=== PATIENT | female | born 1980 | race Caucasian/White ===

== ENCOUNTER 2017-07-20 18:45 | Emergency (ER) | payer OTHER ==
[~2017-07-20] VITALS: Ht 165.1 cm; Wt 96.3 kg
[~2017-07-20 18:45] MED LIST: CIPRO500 MG PO; FLEXERIL PO; JANUMET 50/51 TABLET PO; KEFLEX250 MG/5 M PO; KEFLEX500 MG PO; LANTUS 3 M100 UNITS1 SC; LIPITOR40 MG PO; PERCOCET 5/31 TABLET PO; PRILOSEC40 MG PO; PYRIDIUM100 MG PO; TRAMADOL HCL50 MG PO; ULTRAM50 MG PO; VITAMIN D-32000 UNI1 PO; XANAX PO; ZOFRAN4 MG PO; [UNRECOGNIZED DRUG - OTHER] PO
[2017-07-20 19:13] LABS: HEMATOCRIT 45.1 % (36.0-46.0); HEMOGLOBIN 14.9 G/DL (11.9-15.5); MCH 29.4 PG (29.0-34.0); PLATELET COUNT 223 K/uL (156-360); RBC DIS.WIDTH-CV 13.6 % (11.8-14.6); RBC DIS.WIDTH-SD 44.3 % (39-53); RED BLOOD COUNT 5.07 M/uL (3.80-5.20); WHITE BLOOD COUNT 9.7 K/uL (4.1-10.2)
[2017-07-20 19:22] LABS: CHLORIDE 101 mEq/L (99-109); POTASSIUM 4.1 mEq/L (3.7-5.4); SODIUM 136 mEq/L (136-147)
[2017-07-20 19:24] LABS: GLUCOSE 148 mg/dL (70-99)
[2017-07-20 19:28] LABS: CREATININE 0.8 mg/dL (0.6-1.3); GFR ESTIMATE (CALCULATED) > 59 mL/min/
[2017-07-20 19:29] LABS: UREA NITROGEN (BUN) 12 mg/dL (9-23)
[2017-07-20 19:36] LABS: TROP-I INTERPRETATION NEGATIVE; TROPONIN-I < 0.01 ng/mL (0.0-0.30)
[2017-07-20 22:18] LABS: TROP-I INTERPRETATION NEGATIVE; TROPONIN-I < 0.01 ng/mL (0.0-0.30)
[2017-07-21] MEDS ORDERED: ZANTAC150 MG PO (00:18)
[2017-07-21] MEDS ORDERED: PRILOSEC20 MG PO (00:18)
[2017-07-21 00:28] VITALS: BP 126/84
== END 2017-07-21 00:32 | disposition home or self-care (01) ==
LOC: EME 18:45
PROVIDERS: Nurse Practitioner Family
DX: R07.9 Chest pain, unspecified (principal); K21.9 Gastro-esophageal reflux disease without esophagitis; E11.9 Type 2 diabetes mellitus without complications; E78.5 Hyperlipidemia, unspecified
CPT/HCPCS: 71046; 80048; 84484; 85027; 93005; 99281; 99285; J1885